=== PATIENT | female | born 1995 | race Caucasian/White ===

== ENCOUNTER 2016-10-25 08:54 | Emergency (ER) | payer OTHER ==
--- NOTE | ~2016-10-25 | US61 ---
[facility] A Service of [facility] RADIOLOGY TEXT RESULTS PATIENT: MELODY MEAD LOCATION: [facility] : [birth year] UNIT #: [id number] AGE: [address]: Ave Martinez SEX: F ORDER DR: [id number] [facility] [address] [place], [place] [address] [id number] E MR#: [id number] Acc #: [id number] NAME: MELODY MEAD. : 1995 SEX: F STUDY DATE/TIME: 10/25/2016 12:08 UNIT: [facility] ROOM: STUDY DESCRIPTION: US /Mat <14Wk / Attending Physician: Ave Martinez Pa-C Ordering Physician: Er Physicians Primary Care Physician: Cm Banda MEDICAL IMAGING REPORT This report is preliminary unless electronic signature is present EXAM Pelvic ultrasound INDICATION Breast tenderness and abdominal pain for 1 month. Patient's last normal menstrual period was evidently a month ago. Quantitative beta HCG is 4022. TECHNIQUE Clark-scale, color Doppler and spectral Doppler waveform analysis was performed trough the pelvis both transabdominally and transvaginally. FINDINGS The patients transabdominal images are extremely technically limited. The patient does have what appears to be a gestational sac within the uterus measuring up to 6 x 4 x 6 mm. No definite yolk sac is seen and certainly no pole is identified. Uterus is retroflexed, no adnexal masses are seen and normal color-Doppler flow is seen within both ovaries. No free fluid is identified. IMPRESSION. This patient has a hypoechoic structure identified within the endometrial canal which I suspect reflects a gestational sac, however no pole is identified and no definite yolk sac is seen. Gestational age by measurements would be 5 weeks and 2 days. At that date the patient would be expected to have not only a yolk sac but also a pole with heart tones. I suspect this reflects a blighted ovum. Pseudogestational sac would be another consideration but certainly no suspicious adnexal masses are seen to suggest ectopic at this time. Again, I would favor that this represents a blighted ovum. I would suggest sort term sonographic and obstetric followup. Very early would also be another consideration and, again, short term followup is suggested. Dictated by... [facility] A Service of [facility] RADIOLOGY TEXT RESULTS PATIENT: MELODY MEAD LOCATION: [facility] : [birth year] UNIT #: [id number] AGE: [address]: Ave Martinez SEX: F ORDER DR: Karen Lynn M.D. THIS IS AN ELECTRONICALLY VERIFIED REPORT Karen Lynn M.D. at 10/26/2016 5:02 PM DUANE/beck TD: 10/25/2016 18:32 JOB #: [id number] MEDICAL IMAGING REPORT Page 1 of 1 COPY
[~2016-10-25 08:54] MED LIST: COMBIVIR PO; [UNRECOGNIZED DRUG - OTHER] PO
[2016-10-25 09:39] LABS: BASOPHIL% 0.3 % (0-2.5); EOSINOPHIL# 0.2 X10e3 (0-0.7); EOSINOPHIL% 2.3 % (0.0-7.0); HEMATOCRIT 41.3 % (35.0-45.0); LYMPHOCYTE# 4.5 X10e3 (1.0-3.5); LYMPHOCYTE% 51.4 % (17.0-45.0); MEAN CELL VOLUME 88.7 FL (83-96); MEAN CORPUSCULAR HGB CONC 33.8 g/dL (30-36); MEAN PLATELET VOLUME 7.5 FL (6.5-11.5); MONOCYTE# 0.9 X10e3 (0-1.0); NEUTROPHIL# 3.2 X10e3 (1.5-7.1); PLATELET COUNT 199 X10e3 (140-420); RED BLOOD COUNT 4.66 X10e (3.90-5.30); RED CELL DISTRIBUTION WIDTH 12.7 % (11.0-15.5); WHITE BLOOD COUNT 8.9 X10e3 (4.0-10.5)
[2016-10-25 09:41] LABS: DIFF IND YES
[2016-10-25 09:42] LABS: URINE SOURCE CLEAN CATCH
[2016-10-25 09:47] LABS: URINE APPEARANCE CLOUDY; URINE BLOOD NEG (NEG); URINE COLOR DK YELLOW; URINE GLUCOSE NEG (NEG); URINE KETONE NEG (NEG); URINE LEUKOCYTE ESTERASE 2+ (NEG); URINE NITRATE NEG (NEG); URINE PH 5.5 (5-8); URINE PROTEIN TRACE (NEG); URINE SPECIFIC GRAVITY 1.027 (1.003-1.035)
[2016-10-25 09:50] LABS: CULTURE INDICATED? YES; URINE BACTERIA AUWI 3+ (NEGATIVE); URINE SQUAMOUS EPITHELIAL CELL MANY /[HPF]; UWBCS1 AUWI 25-50 (0-5)
[2016-10-25 09:58] LABS: ALBUMIN SERUM 3.8 g/dL (3.5-5.0); BILIRUBIN,TOTAL 0.8 mg/dL (0.2-2.0); CALCIUM SERUM 8.4 mg/dL (8.4-10.2); CREATININE SERUM 0.7 mg/dL (0.6-1.4); POTASSIUM 3.7 mmol/L (3.5-5.1); PROTEIN TOTAL SERUM 7.4 g/dL (6.0-8.3)
[2016-10-25 10:02] LABS: URINE BILIRUBIN NEG (NEG)
[2016-10-25 10:05] LABS: U HYALINE CASTS AUWI 0-2 /[LPF]; URBCS1 AUWI 0-2 /[HPF] (0-2); URINE MUCUS PRESENT; URINE YEAST PRESENT
[2016-10-25 10:10] LABS: PLATELET ESTIMATE NORMAL (NORMAL)
[2016-10-26 23:06] LABS: CHLAMYDIA TRACH Detected (Not Detected); N GONOR Not Detected (Not Detected)
== END 2016-10-25 13:33 | disposition home or self-care (01) ==
LOC: CED 08:54
PROVIDERS: Physician Assistant
DX: O23.01 Infections of kidney in pregnancy, first trimester (principal); B37.3 Candidiasis of vulva and vagina; Z79.899 Other long term (current) drug therapy
CPT/HCPCS: 76801; 80053; 81003; 84702; 84703; 85025; 87086; 87491; 87591; 87808; 87905; 99284

== ENCOUNTER 2016-12-05 10:35 | Emergency (ER) | payer OTHER ==
[~2016-12-05] VITALS: Ht 152.4 cm; Wt 75.3 kg
[2016-12-05 11:15] LABS: URINE SOURCE CLEAN CATCH
[2016-12-05 11:21] LABS: URINE APPEARANCE CLOUDY; URINE BILIRUBIN NEG (NEG); URINE BLOOD NEG (NEG); URINE COLOR DK YELLOW; URINE GLUCOSE NEG (NEG); URINE KETONE TRACE (NEG); URINE LEUKOCYTE ESTERASE 1+ (NEG); URINE NITRATE NEG (NEG); URINE PH 6.5 (5-8); URINE PROTEIN NEG (NEG); URINE SPECIFIC GRAVITY 1.025 (1.003-1.035)
[2016-12-05 11:23] LABS: CULTURE INDICATED? YES; URBCS1 AUWI 0-2 /[HPF] (0-2); URINE BACTERIA AUWI 2+ (NEGATIVE); URINE SQUAMOUS EPITHELIAL CELL MOD /[HPF]
[2016-12-07 16:51] LABS: CHLAMYDIA TRACH Not Detected (Not Detected); N GONOR Not Detected (Not Detected)
== END 2016-12-05 12:29 | disposition home or self-care (01) ==
LOC: CED 10:35
PROVIDERS: Physician Assistant Medical
DX: O99.89 Other specified diseases and conditions complicating pregnancy, childbirth and the puerperium (principal); N94.10 Unspecified dyspareunia; Z3A.08 8 weeks gestation of pregnancy
CPT/HCPCS: 81003; 84703; 87086; 87491; 87591; 87808; 87905; 99283

== ENCOUNTER 2016-12-31 08:57 | Emergency (ER) | payer OTHER ==
[~2016-12-31] VITALS: Ht 152.4 cm; Wt 75.3 kg
[2016-12-31 10:32] LABS: URINE SOURCE CLEAN CATCH
[2016-12-31 10:38] LABS: URINE APPEARANCE CLEAR; URINE BILIRUBIN NEG (NEG); URINE BLOOD NEG (NEG); URINE COLOR YELLOW; URINE GLUCOSE NEG (NEG); URINE KETONE TRACE (NEG); URINE LEUKOCYTE ESTERASE 1+ (NEG); URINE NITRATE NEG (NEG); URINE PH 6.5 (5-8); URINE PROTEIN NEG (NEG); URINE SPECIFIC GRAVITY 1.022 (1.003-1.035)
[2016-12-31 10:41] LABS: CULTURE INDICATED? YES; U HYALINE CASTS AUWI 0-2 /[LPF]; URBCS1 AUWI 0-2 /[HPF] (0-2); URINE BACTERIA AUWI 1+ (NEGATIVE); URINE SQUAMOUS EPITHELIAL CELL FEW /[HPF]
== END 2016-12-31 11:05 | disposition home or self-care (01) ==
LOC: CED 08:57
PROVIDERS: Student in an Organized Health Care Education/Training Program
DX: O99.89 Other specified diseases and conditions complicating pregnancy, childbirth and the puerperium (principal); R11.0 Nausea; R42 Dizziness and giddiness
CPT/HCPCS: 81003; 84703; 87086; 99284